=== PATIENT | male | born 1945 | race Caucasian/White ===

== ENCOUNTER → 2016-12-29 | Outpatient (CLI) | payer MEDICARE, OTHER | END | disposition home or self-care (01) | LOC: GMAB 11:32 | PROVIDERS: ATTEND Family Medicine | DX: Z12.5 Encounter for screening for malignant neoplasm of prostate (principal); I10 Essential (primary) hypertension; R53.82 Chronic fatigue, unspecified | CPT/HCPCS: 84403; 84443; G0103 ==

== ENCOUNTER 2017-04-06 11:12 | Observation (INO) | payer MEDICARE, OTHER ==
[2017-04-06] MEDS ORDERED: ASPIRIN TABLET 325 MG TAB PO ONE (11:49)
[2017-04-06] MEDS ORDERED: SODIUM CHLORIDE 0.9% 100ML 100 ML IVPB ONE (11:59)
[2017-04-06] MEDS ORDERED: diltiaZEM DRIP 125 MG/25 ML VIAL IVPB ONE (11:59)
[2017-04-06] MEDS ORDERED: diltiaZEM DRIP 125 MG in SODIUM CHLORIDE 0.9% 100ML 100 ML IVPB SCH (12:00)
--- NOTE | 2017-04-06 12:20 | RAD ---
Study: Single Frontal View of the Chest. Indication:palpitations Comparison: None IMPRESSION: Cardiomegaly without failure. Lungs hyperexpanded. Left basilar atelectasis, otherwise lungs clear. No acute osseous abnormality. Electronically signed by: Doc Monzon MD 04/06/2017 12:19 PM CDT
--- NOTE | 2017-04-06 14:12 | ED.PDOC ---
History of Present Illness - General Chief Complaint: Cardiovascular Problem Stated Complaint: Irregular heart beat, dizziness Time Seen by Provider: 04/06/17 11:14 Source: patient Exam Limitations: no limitations - History of Present Illness Initial Comments: the patient is a 71-year-old male presenting to the emergency room secondary primarily to a feeling of dyspnea on exertion. No orthopnea or paroxysmal nocturnal dyspnea. No swelling. No cough. No shortness of breath at rest. He does have periodic symptoms of palpitations. No syncope. No definite near syncope. No chest pain. He does have intermittent left-sided back pain as well as intermittent left hand discomfort that has been ongoing for the last 6 months to a year. It does not appear to be related to exertion. He does see cardiology and has had a history of primarily a bradycardia. He sees Dr. Finney normally. He only takes aspirin and lisinopril. No history of atrial fibrillation. Again he has had no chest pain. No diaphoresis. He noted some irregularities in his blood pressure todayso he showed up here. Again he is in no acute distress. He does get mildly winded with exertion. He is alert and oriented and cooperative. Timing/Duration: unsure Severity: mild Improving Factors: rest Worsening Factors: movement Associated Symptoms: malaise, shortness of breath Allergies/Adverse Reactions: Allergies Ofloxacin [From Floxin] Allergy (Verified 04/06/17 12:34) Anaphylaxis Home Medications: Ambulatory Orders Aspirin [Baby Aspirin] 162 mg PO DAILY 04/06/17 Lisinopril 5 mg PO DAILY 04/06/17 Review of Systems - Review of Systems Constitutional: States: malaise EENTM: States: no symptoms reported Respiratory: States: short of breath Cardiology: States: palpitations Gastrointestinal/Abdominal: States: no symptoms reported Genitourinary: States: no symptoms reported Musculoskeletal: States: no symptoms reported Skin: States: no symptoms reported Neurological: States: no symptoms reported All other Systems: No Change from Baseline Past Medical History (General) - Patient Medical History Hx Stroke: No Hx Asthma: Yes Hx Congestive Heart Failure: No Hx Hypertension: Yes Hx Diabetes: No Hx MRSA: No Surgical History: other - Vaccination History Hx Influenza Vaccination: No Hx Pneumococcal Vaccination: Yes - 2014 - Social History Hx Tobacco Use: No Hx Alcohol Use: No Family Medical History - Family History Father Hx Cardiac Disease: - "Irregular heart rhythm" Physical Exam - Physical Exam General Appearance: Alert, Anxious, No apparent distress Eye Exam: bilateral normal Ears, Nose, Throat: hearing grossly normal, normal ENT inspection, normal pharynx Neck: non-tender, full range of motion, supple Respiratory: chest non-tender, lungs clear, normal breath sounds, no respiratory distress, no accessory muscle use Cardiovascular/Chest: normal peripheral pulses, no edema, tachycardia Peripheral Pulses: radial,right: 2+, radial,left: 2+, dorsalis pedis,right: 2+, dorsalis pedis,left: 2+ Gastrointestinal/Abdominal: non tender, soft Rectal Exam: deferred Back Exam: normal inspection, no CVA tenderness, no vertebral tenderness Extremity: normal range of motion, non-tender, normal inspection, no pedal edema , normal capillary refill Neurologic: elastic attacher zigzag II-XII nml as tested, no motor/sensory deficits, alert, normal mood/affect, oriented x 3 Skin Exam: normal color Comments: Vital Signs - 24 hr 04/06/17 04/06/17 11:15 12:10 Temperature 97.9 F Pulse Rate [ 133 H 152 H Apical] Pulse Rate [ 110 H Left Radial] Respiratory 22 22 Rate Blood Pressure 145/99 106/59 [Right Arm] O2 Sat by Pulse 98 98 Oximetry Progress - Progress Progress: 04/06/17 14:14 the patient is a 71-year-old male presenting to the emergency room secondary to palpitations and mild dyspnea on exertion. The patient is found to have atrial fibrillation with a borderline rapid ventricular response. Without medications his pulse rate ranges [id number]. The rate on telemetry however ranges from 120s to 150s. After a small dose of Cardizemhis pulse rate has dropped down into the 70s but his telemetry rate is still in the 1 teens. Systolic blood pressures have also dropped from the 130s down to the 90s. I have discussed the patient with the adjuster on-call for the [facility]. As he is not exhibiting any evidence of failure and his ventricular rate control does not appear to be significantly compromised at this point, monitoring off of rate control medications as recommended initially. If pulse rates go too high with activityor if he is showing evidence of compromise from tachycardia and then the addition of rate control would be warranted. For now the patient will be started on anticoagulation with Danyel was 5 mg twice a day. They will plan on following up the patient is an outpatient next week as long as he is doing well. It is not known at this time definitively when the atrial fibrillation started. Electrocardioversion is not recommended as he is not showing significant evidence of decompensation. - Results/Orders Results/Orders: Laboratory Tests 04/06/17 04/06/17 04/06/17 11:55 11:55 11:55 WBC 5.9 RBC 5.15 Hgb 15.3 Hct 46.0 MCV 89.2 MCH 29.7 MCHC 33.3 RDW 14.5 Plt Count 245 MPV 8.4 Absolute Neuts (auto) 3.10 Absolute Lymphs (auto) 2.00 Absolute Monos (auto) 0.70 Absolute Eos (auto) 0.20 Absolute Basos (auto) 0.00 Neutrophils % 51.6 Lymphocytes % 33.4 Monocytes % 11.5 H Eosinophils % 3.0 Basophils % 0.5 PT 11.2 INR 0.990 PTT (SP) 37.3 H Sodium 139 Potassium 4.0 Chloride 106 Carbon Dioxide 26 Anion Gap 11.0 L BUN 26 H Creatinine 1.27 BUN/Creatinine Ratio 20.5 H Random Glucose 107 H Serum Osmolality 282.8 Calcium 8.6 Magnesium 2.3 Total Bilirubin 0.5 AST 17 ALT 19 Alkaline Phosphatase 79 Creatine Kinase 96 CK-MB (CK-2) 1.8 CK-MB (CK-2) % Not Reportable Troponin I 0.02 B-Natriuretic Peptide 14.0 Serum Total Protein 7.3 Albumin 4.1 Globulin 3.2 Albumin/Globulin Ratio 1.3 TSH 1.88 chest x-ray shows some very mild cardiomegaly but no evidence of overt fluid overload. EKG shows atrial fibrillation with a rate of 148 bpm. Please note that the pulse rate during this was only around 100 bpm. There is some left axis deviation. There is poor R-wave progression. Probable left bundle branch. I do not have previous EKG to compare to. Departure - Departure Clinical Impression: Atrial fibrillation with RVR Disposition: Admit Patient Referrals: Gaston Schultz MD [Primary Care Provider] - 1-2 Weeks Home Medications: Ambulatory Orders Aspirin [Baby Aspirin] 162 mg PO DAILY 04/06/17 Lisinopril 5 mg PO DAILY 04/06/17 Decision To Admit - Decistion To Admit Decision to Admit Reason: Medical Nature Decision to Admit Date: 04/06/17 Decision to Admit Time: 14:18
[2017-04-06] MEDS ORDERED: APIXABAN 2.5 MG TAB PO ONE (14:18)
--- NOTE | 2017-04-06 14:35 | HP ---
SUPERVISING PHYSICIAN: Clark Chacon M.D. CHIEF COMPLAINT: Shortness of breath and dizziness. HISTORY OF PRESENT ILLNESS: This is a 71 year-old male patient who had a gradual onset of shortness of breath yesterday evening. He had gone out to get his dumpster and brought it in and noticed that he was having difficulty getting his breath. He thinks it may have started several days prior to that but he really noticed it last night. After going in and relaxing, he said he felt some better and went to bed, but then he woke up in the middle of the night and couldn't sleep. He also had some dizziness, plus shortness of breath. There was no diaphoresis or chest pain, but he did feel a fluttering in his chest off and on during this time. He also said his left arm tingled, especially on the ring and little finger, but he has had that in the past. This morning, he came to the Emergency Room because the shortness of breath worsened as well as the dizziness and palpitations. In the Emergency Room, his EKG showed atrial fibrillation with rapid ventricular response with a heart rate that went up to 152. Blood pressure was 145/99. CBC and chemistries were basically within normal limits except his BUN was 26 and glucose was 107. He was given 5 mg of Cardizem and his systolic blood pressure dropped to the 80s. His heart rate did come down to the 110s to 120s. He has a history of bradycardia in the past and he sees Dr. Wesley at [facility]. The Emergency Room physician, Dr. Jake Grande, called Dr. Wesley's office and it was recommended that he be placed on Eliquis as well as a beta chrystal. The Cardizem was stopped. [facility] also has a followup appointment for him with Dr. Wesley next week. I was called for admission. PAST MEDICAL HISTORY: 1. Bradycardia. 2. Benign prostatic hypertrophy. 3. Tinnitus. PAST SURGICAL HISTORY: 1. Hernia surgery. 2. Abdominal surgery. 3. Tonsillectomy. HOME MEDICATIONS: Per the EMR and awaiting verification. ALLERGIES: FLOXIN. SOCIAL HISTORY: He denies any tobacco or illicit drug use. He drinks an alcoholic beverage once or twice per year. REVIEW OF SYSTEMS: GENERAL: Negative for fever, fatigue or weight changes. HEENT: Negative for sinus symptoms, ear pain, vision changes or sore throat. RESPIRATORY: Positive for shortness of breath, although he is not having any shortness of breath symptoms at this time. Negative for wheezing or coughing. CARDIAC: As per the History of Present Illness. GASTROINTESTINAL: Negative for abdominal pain, nausea, vomiting, diarrhea or constipation. SKIN: Negative for lesions or rashes. GENITOURINARY: Negative for hematuria, dysuria or polyuria. NEUROLOGIC: Positive for dizziness. Negative for weakness or seizures. PHYSICAL EXAMINATION: VITAL SIGNS: He is afebrile, heart rate ranges from 106 to 137, blood pressure 106/69, respiratory rate 18, O2 sat is 98% on room air. GENERAL: This is a 71 year-old male patient who looks younger than his stated age. He is in no acute distress. HEENT: Normocephalic and atraumatic. Pupils are equal and reactive. NECK: Supple without mass. CHEST: Clear to auscultation bilaterally. CARDIOVASCULAR: Irregular rhythm, tachycardic rate. ABDOMEN: Soft, nondistended, non-tender. Bowel sounds are positive. EXTREMITIES: No cyanosis, clubbing or edema. NEUROLOGIC: He is awake, alert and oriented times three. LABORATORY: As per the history of present illness, plus his TSH is 1.88. BNP 14, initial cardiac enzymes are negative. RADIOLOGY: Chest x-ray per radiology interpretation shows cardiomegaly without failure. Lungs are hyperexpanded with left basilar atelectasis, otherwise lungs are clear. No acute osseous abnormalities. All other labs and films have been reviewed via the EMR. ASSESSMENT: 1. New onset of atrial fibrillation with rapid ventricular response. 2. History of bradycardia. 3. Benign prostatic hypertrophy. PLAN: We will place the patient in Observation. Monitor his heart rate and EKGs overnight as well as his serial cardiac enzymes. I will followup with Dr. Wesley in the morning to make sure he does have an appointment next week. He has been started on Eliquis as well as Lopressor. I will check a hemoglobin A1c in the morning. I will repeat his blood work in the morning. Hopefully his heart rate can be controlled and he can followup with Dr. Wesley next week. Otherwise we will continue to monitor the patient closely and followup as needed. Dr. Chacon is the collaborating physician available for consultation. #[id number] [facility]
[2017-04-06] MEDS ORDERED: SODIUM CHLORIDE 0.9% (FLUSH) 10 ML SYG IV PRN (15:50)
[2017-04-06] MEDS ORDERED: ACETAMINOPHEN 325 MG TAB PO PRN (15:51)
[2017-04-06] MEDS ORDERED: IV SET AND CAP CHANGE INJ INJ SCH (16:00)
[2017-04-06] MEDS: METOPROLOL TARTRATE 25 MG TAB PO SCH (16:37)
[2017-04-06] MEDS ORDERED: SODIUM CHLORIDE 0.45% 1000ML 1,000 ML IVS ONE (17:00)
[2017-04-06] MEDS ORDERED: NON-FORMULARY MEDICATION 1 EA MIS (Diphenhydramine-Acetaminophen [Tylenol Pm Extra Strengt PO SCH (21:00)
[2017-04-06] MEDS: APIXABAN 2.5 MG TAB PO SCH (21:10)
[2017-04-06] MEDS: SODIUM CHLORIDE 0.9% (FLUSH) 10 ML SYG IV SCH (21:11)
[2017-04-07] MEDS ORDERED: OMEPRAZOLE CAP 20 MG CAP ONE (02:09)
[2017-04-07] MEDS ORDERED: BENEFIBER PO PRN (05:37)
[2017-04-07] MEDS ORDERED: OMEPRAZOLE CAP 20 MG CAP PO SCH (06:30)
[2017-04-07] MEDS ORDERED: ASPIRIN (CHEWABLE) 81 MG TAB ONE (07:23)
[2017-04-07] MEDS ORDERED: LISINOPRIL 5 MG TAB ONE (07:24)
[2017-04-07] MEDS: METOPROLOL TARTRATE 25 MG TAB PO SCH ×2 (08:33→09:59)
[2017-04-07] MEDS: APIXABAN 2.5 MG TAB PO SCH (08:34)
[2017-04-07] MEDS: SODIUM CHLORIDE 0.9% (FLUSH) 10 ML SYG IV SCH (08:35)
[2017-04-07 09:00] VITALS: O2SAT 95
[2017-04-07] MEDS ORDERED: ASPIRIN (CHEWABLE) 81 MG TAB PO SCH (09:00)
[2017-04-07] MEDS ORDERED: WHEAT DEXTRIN PO SCH (09:00)
[2017-04-07] MEDS ORDERED: TAMSULOSIN 0.4 MG CAP PO SCH (09:00)
[2017-04-07] MEDS ORDERED: LISINOPRIL 5 MG TAB PO SCH (09:00)
[2017-04-07 09:01] VITALS: BP 117/74; TEMP 98.2
--- NOTE | 2017-04-07 11:42 | DS ---
SUPERVISING PHYSICIAN: Clark Chacon MD DISCHARGE DIAGNOSIS: 1. New onset of atrial fibrillation with rapid ventricular response, now converted to sinus bradycardia. 2. History of bradycardia. 3. Benign prostatic hypertrophy. HISTORY OF PRESENT ILLNESS: This is a 71-year-old male patient who presented to the Emergency Room on the date of admission with onset of shortness of breath with palpitations. The symptoms actually started the day before his admission but was questioning that they may have started a week or so before. The day prior to admission, symptoms seemed worse and he felt weak with the palpitations. He had gone out to get his dumpster in front of his house and he noticed that he was extremely short of breath with any kind of exertion. He felt some better later that evening, but woke up about 4 o'clock in the morning and continued to have shortness of breath with palpitations as well as weakness and dizziness. The morning of admission, he came to the Emergency Room and was found to be in atrial fibrillation with rapid ventricular response. His blood pressure was 145/99. CBC and CMP were basically within normal limits. He was placed on a Cardizem drip at 5 mg an hour and it dropped his systolic blood pressure to the 80s. The Emergency Room physician, Dr. Jake Grande, called Dr. Wesley's office and it was recommended that he be placed on Eliquis as well as a beta chrystal. The Cardizem was stopped and he was placed in observation in the hospital. HOSPITAL COURSE: The patient was given metoprolol tartrate 12.5 mg and several hours after he was given the metoprolol, he converted to sinus bradycardia. His vital signs were stable. His cardiac enzymes were negative. He had no further complaints of weakness or shortness of breath and, in fact, he could tell when he converted in that he said he felt much better yesterday evening. I spoke with Dr. Bhat in Dr. Wesley's office at [facility]. He recommended that his lisinopril be discontinued and that he continue on the metoprolol tartrate 12.5 mg twice a day as well as Eliquis 5 mg twice a day. Today, he does not have any complaints of shortness of breath, chest pain, weakness, or dizziness and he will be discharged home. DISCHARGE PLAN: The patient will be discharged home in stable condition. He will be discharged on Eliquis 5 mg b.i.d. as well as metoprolol tartrate 12.5 mg b.i.d. He is to hold his metoprolol dosing for heart rate less than 50. He has a followup appointment with Dr. Schultz on 04/14/17 at 9:15. He has an appointment with Dr. Wesley on 04/18/17 at 2 PM. He is to return to the hospital or call Dr. Schultz's office if there are any further problems or symptoms recur. DISCHARGE MEDICATIONS.: 1 Baby aspirin. 2. Flomax. 3. Benefiber. 4. Tylenol PM. 5. Eliquis. 6. Metoprolol tartrate. Dr. Chacon is the collaborating physician and available for consultation. #[id number] [facility]
== END 2017-04-07 11:00 | disposition home or self-care (01) ==
LOC: ER 11:12 → MS 14:33
PROVIDERS: ADMIT Nurse Practitioner Acute Care; ATTEND Nurse Practitioner Acute Care
DX: I48.91 Unspecified atrial fibrillation (principal); R00.1 Bradycardia, unspecified; N40.0 Benign prostatic hyperplasia without lower urinary tract symptoms; R06.02 Shortness of breath; H93.19 Tinnitus, unspecified ear; I51.7 Cardiomegaly; Z79.82 Long term (current) use of aspirin; Z79.899 Other long term (current) drug therapy; Z88.1 Allergy status to other antibiotic agents
CPT/HCPCS: 36415 ×5; 71010; 80053 ×2; 82550 ×2; 82553 ×2; 83036; 83735; 83880; 84443; 84484 ×2; 85025 ×2; 85610; 85730; 93005 ×7; 94760 ×3; 96374; 99284; G0378; J7050; J7799

== ENCOUNTER 2017-05-27 11:30 | Emergency (ER) | payer MEDICARE, OTHER ==
[2017-05-27] MEDS ORDERED: SODIUM CHLORIDE 0.9% (FLUSH) 10 ML SYG IV PRN (11:42)
[2017-05-27] MEDS ORDERED: ASPIRIN TABLET 325 MG TAB PO ONE (11:42)
[2017-05-27] MEDS ORDERED: NITROGLYCERIN 0.4 MG 25 EA TAB SL ONE (11:42)
--- NOTE | 2017-05-27 12:11 | RAD ---
EXAM DESCRIPTION: Chest,1 View CLINICAL HISTORY: 71 years,Male,pain COMPARISON: May 27, 2017 FINDINGS: Lung tubbs are clear, no consolidation, effusions, or nodules. Heart size and pulmonary vascularity are normal. Bony elements are unremarkable for age. IMPRESSION: Unremarkable chest. Stable Electronically signed by: Austin Mosher MD 05/27/2017 12:09 PM CDT
[2017-05-27 12:39] VITALS: O2SAT 98
--- NOTE | 2017-05-27 13:12 | ED.PDOC ---
History of Present Illness - General Chief Complaint: Chest Pain/CT Stated Complaint: Chest tightness, L arm tingling/numbness Time Seen by Provider: 05/27/17 11:41 Source: patient Exam Limitations: no limitations - History of Present Illness Initial Comments: Boo Perdomo 71 y/o male stated that while sitting on his recliner this morning he had chest tightness and numbness to his arm and hand and got worse with sob,denies diaphoresis,nausea,vomting.Had this symptoms on and off since last month and had abnormal stress test and nuclear cardiac scan he is scheduled to have cardiac cath 05/30/2017 in [facility].He was given 324mg ASA and NTG 0.[address] here.Has A.fibrillation 6 mos. ago hospitalized and started on eliquis and b-chrystal. Timing/Duration: 7-24 hours Severity: moderate Location: central Activities at Onset: rest Prior Chest Pain/Cardiac Workup: cardiac cath - nine years ago with LBBB-20-30 % lesion according to patient, echocardiography, stress test, thallium scan Improving Factors: nothing Worsening Factors: nothing Nitro Today/Relief: 0.4 mg x 1, provided by EMS Aspirin Treatment Today: 325 mg x 1, provided by EMS Associated Symptoms: shortness of breath Allergies/Adverse Reactions: Allergies Ofloxacin [From Floxin] Allergy (Verified 05/27/17 11:45) Anaphylaxis Home Medications: Ambulatory Orders Diphenhydramine-Acetaminophen [Tylenol Pm Extra Strength 500-25 mg] 1 - 2 tab PO BEDTIME 04/06/17 Tamsulosin HCl [Flomax] 0.4 mg PO DAILY 04/06/17 Wheat Dextrin [Benefiber] 2 tsp PO QAM 04/06/17 Apixaban [Eliquis] 5 mg PO BID #60 tab 04/07/17 Metoprolol Tartrate [Lopressor] 12.5 mg PO BIDFD #60 tablet 04/07/17 Nitroglycerin 0.4 mg Tab [Nitrostat] 0.4 mg SL .Q5M PRN #1 bttl 05/27/17 Review of Systems - Review of Systems Constitutional: States: no symptoms reported EENTM: States: no symptoms reported Respiratory: States: no symptoms reported Cardiology: States: see HPI Genitourinary: States: no symptoms reported Musculoskeletal: States: no symptoms reported Skin: States: no symptoms reported Neurological: States: no symptoms reported Past Medical History (General) - Patient Medical History Hx Seizures: No Hx Stroke: No Hx Asthma: Yes Hx of COPD: No Hx Cardiac Disorders: Yes - A fib Hx Congestive Heart Failure: No Hx Pacemaker: No Hx Hypertension: Yes Hx Diabetes: No Hx MRSA: No Surgical History: other - hernia repair - Vaccination History Hx Influenza Vaccination: No Hx Pneumococcal Vaccination: Yes - 2014 - Social History Hx Tobacco Use: No Hx Alcohol Use: No Hx Substance Use: No Hx Physical Abuse: No Hx Emotional Abuse: No - Activities of Daily Living Grooming Ability: Independent Eating (Feeding) Ability: Independent Toileting Ability: Independent Family Medical History - Family History Father Living Status: Age at (years of age): 89 Cause of : COPD Hx Family Asthma: Yes Hx Family Congestive Heart Failure: Yes Hx Family Hypertension: No Hx Family Stroke: Yes Hx Cardiac Disease: Yes - "Irregular heart rhythm" Hx Family Diabetes: No Hx Family Cancer: Yes - dad-prostate Mother Family History: No Known Living Status: Age at (years of age): 77 Cause of : Bleeding Ulcer Hx Family Asthma: No Hx Family Congestive Heart Failure: No Hx Family Hypertension: No Hx Family Stroke: No Hx Cardiac Disease: No Hx Family Diabetes: No Hx Family Cancer: No Physical Exam - Physical Exam General Appearance: Alert, Comfortable, No apparent distress Eyes, Ears, Nose, Throat Exam: PERRL/EOMI, normal ENT inspection, pharynx normal Neck: non-tender, supple, normal inspection Respiratory: lungs clear, normal breath sounds Cardiovascular/Chest: normal peripheral pulses, regular rate, rhythm, no murmur , bradycardia - heart rate 53 Peripheral Pulses: radial,right: 2+, radial,left: 2+ Gastrointestinal/Abdominal: normal bowel sounds, non tender, soft, no organomegaly Extremity: no pedal edema, no calf tenderness Neurologic: alert, normal mood/affect, oriented x 3 Progress - Progress Progress: 05/27/17 13:18 Vital Signs 05/27/17 05/27/17 05/27/17 11:40 11:45 12:11 Pulse Rate [ 58 L 58 L 58 L Left Radial] Respiratory 20 20 20 Rate Blood Pressure 140/73 121/71 [Left Arm] O2 Sat by Pulse 98 96 Oximetry 05/27/17 12:30 Pulse Rate [ 55 L Left Radial] Respiratory 16 Rate Blood Pressure 116/65 [Left Arm] O2 Sat by Pulse 98 Oximetry - Results/Orders Results/Orders: Laboratory Tests 05/27/17 05/27/17 05/27/17 11:57 11:57 14:21 WBC 4.8 RBC 4.85 Hgb 14.5 Hct 43.2 MCV 89.1 MCH 29.8 MCHC 33.5 RDW 13.8 Plt Count 232 MPV 8.2 Absolute Neuts (auto) 2.70 Absolute Lymphs (auto) 1.40 Absolute Monos (auto) 0.50 Absolute Eos (auto) 0.20 Absolute Basos (auto) 0.00 Neutrophils % 56.5 Lymphocytes % 29.4 Monocytes % 10.2 H Eosinophils % 3.3 Basophils % 0.6 PT 13.7 H INR 1.210 PTT (SP) 41.2 H D-Dimer, Quantitative < 230 Sodium 139 Potassium 4.1 Chloride 106 Carbon Dioxide 27 Anion Gap 10.1 L BUN 23 H Creatinine 1.26 BUN/Creatinine Ratio 18.3 Random Glucose 111 H Serum Osmolality 281.9 Calcium 9.0 Magnesium 2.2 Total Bilirubin 0.5 Direct Bilirubin 0.1 Indirect Bilirubin 0.4 AST 14 ALT 18 Alkaline Phosphatase 75 Creatine Kinase 54 CK-MB (CK-2) 0.9 CK-MB (CK-2) % Not Reportable Troponin I < 0.02 Cancelled B-Natriuretic Peptide 13.5 Serum Total Protein 6.9 Albumin 4.1 05/27/17 14:35 WBC RBC Hgb Hct MCV MCH MCHC RDW Plt Count MPV Absolute Neuts (auto) Absolute Lymphs (auto) Absolute Monos (auto) Absolute Eos (auto) Absolute Basos (auto) Neutrophils % Lymphocytes % Monocytes % Eosinophils % Basophils % PT INR PTT (SP) D-Dimer, Quantitative Sodium Potassium Chloride Carbon Dioxide Anion Gap BUN Creatinine BUN/Creatinine Ratio Random Glucose Serum Osmolality Calcium Magnesium Total Bilirubin Direct Bilirubin Indirect Bilirubin AST ALT Alkaline Phosphatase Creatine Kinase 48 CK-MB (CK-2) 0.9 CK-MB (CK-2) % Not Reportable Troponin I < 0.02 B-Natriuretic Peptide Serum Total Protein Albumin - EKG/XRAY/CT EKG: LBBB Comments: heart rate-70 LAD XRAY: chest - no acute findings - Additional EKG/XRAY/Consults EKG #2: Sigifredo, Sinus, LBBB Comments: Heart rate-53 Departure - Departure Clinical Impression: Chest tightness or pressure Time of Disposition: 15:24 Disposition: Discharge to Home or Self Care Condition: Fair Departure Forms: ED Discharge - Pt. Copy, Patient Portal Self Enrollment Instructions: DI for Chest Pain Referrals: Gaston Schultz MD [Primary Care Provider] - 1-2 Weeks Prescriptions: Nitroglycerin 0.4 mg Tab [Nitrostat] 0.4 mg SL .Q5M PRN #1 bttl PRN Reason: Chest Pain Home Medications: Ambulatory Orders Diphenhydramine-Acetaminophen [Tylenol Pm Extra Strength 500-25 mg] 1 - 2 tab PO BEDTIME 04/06/17 Tamsulosin HCl [Flomax] 0.4 mg PO DAILY 04/06/17 Wheat Dextrin [Benefiber] 2 tsp PO QAM 04/06/17 Apixaban [Eliquis] 5 mg PO BID #60 tab 04/07/17 Metoprolol Tartrate [Lopressor] 12.5 mg PO BIDFD #60 tablet 04/07/17 Nitroglycerin 0.4 mg Tab [Nitrostat] 0.4 mg SL .Q5M PRN #1 bttl 05/27/17 Additional Instructions: RETURN TO EMERGENCY ROOM NEEDED;KEEP APPOINTMENT WITH [facility] SUPERVISOR FOR CARDIAC CATH 05/30/2017
[2017-05-27 15:37] VITALS: BP 109/61; TEMP 98.2
== END 2017-05-27 15:40 | disposition home or self-care (01) ==
LOC: ER 11:30
DX: R07.89 Other chest pain (principal); I44.7 Left bundle-branch block, unspecified; I48.91 Unspecified atrial fibrillation; J45.909 Unspecified asthma, uncomplicated; Z79.899 Other long term (current) drug therapy; Z79.01 Long term (current) use of anticoagulants

== ENCOUNTER → 2018-02-21 | Outpatient (CLI) | payer MEDICARE, OTHER | LOC: GMAE 10:52 | PROVIDERS: ATTEND Family Medicine | DX: I10 Essential (primary) hypertension (principal); Z12.5 Encounter for screening for malignant neoplasm of prostate | CPT/HCPCS: 84443; G0103 ==

== ENCOUNTER → 2019-02-20 | Outpatient (CLI) | payer MEDICARE, OTHER | LOC: YCFC.O 07:03 | PROVIDERS: ATTEND Family Medicine | DX: Z00.00 Encounter for general adult medical examination without abnormal findings (principal); Z13.220 Encounter for screening for lipoid disorders; R53.83 Other fatigue; E78.5 Hyperlipidemia, unspecified; R97.20 Elevated prostate specific antigen [PSA] ==

== ENCOUNTER → 2019-03-05 | Outpatient (CLI) | payer MEDICARE, OTHER ==
--- NOTE | 2019-03-05 10:18 | CT ---
EXAM DESCRIPTION: Abdomen/Pelvis w/wo Contrast CLINICAL HISTORY: 73 years Male, HEMATURIA COMPARISON: None available. TECHNIQUE: Contiguous 3 mm axial images were obtained from the lung bases to the level of the proximal femora before and after the administration of intravenous and oral contrast. Sagittal and coronal reconstructions were reviewed. FINDINGS: THORAX: Minimal subsegmental atelectasis is noted in the visualized lower thorax. LIVER: The liver demonstrates normal size and density with no intrahepatic biliary ductal dilatation or focal masses. GALLBLADDER: Multiple gallstones are identified. PANCREAS: Appears normal with no cystic or solid lesions. SPLEEN: Normal ADRENAL GLANDS: Normal with no nodules or masses. KIDNEYS: Multiple bilateral simple renal cysts are identified. Few nonobstructive calculi measuring up to 4 mm are noted in the left kidney. No hydronephrosis or perinephric fluid collections bilaterally. 5 mm calculus is noted at the junction of the middle and distal one thirds of the right ureter with no obstructive dilatation. The visualized left ureter appears normal. STOMACH: Not well distended limiting detailed evaluation. SMALL BOWEL: The small bowel loops demonstrate variable degrees of distention with no abnormal dilatation or other signs to suggest bowel obstruction. LARGE BOWEL: Multiple diverticuli are identified throughout the colon, with no acute inflammation. Mild constipation is also present. The appendix is well-visualized and appears normal No evidence of free intraperitoneal air or fluid. RETROPERITONEUM: The abdominal aorta is nonaneurysmal with mild atherosclerosis. The inferior vena cava is normal in size and caliber. No abnormally enlarged retroperitoneal lymph nodes are identified. URINARY BLADDER: The urinary bladder is mildly distended with no gross abnormality. The prostate gland is enlarged in size measuring 6.3 x 4.7 x 5.9 cm. The seminal vesicles appear normal. ADDITIONAL FINDINGS: Fat-containing left inguinal hernia is identified. BONES: Mild degenerative changes are identified in the visualized bones.No evidence of osteophytic or osteoblastic lesions. IMPRESSION: 1. 5 mm calculus is noted at the junction of the middle and distal one thirds of the right ureter with no upstream dilatation. 2. Nonobstructive nephrolithiasis of the left kidney. 3. Enlarged prostate gland. This exam was performed according to our departmental dose-optimization program, which includes automated exposure control, adjustment of the mA and/or kV according to patient size and/or use of iterative reconstruction technique. Electronically signed by: Hien Jennings MD 03/05/2019 10:17 AM CDT
== END ==
LOC: CT 08:00
PROVIDERS: ATTEND Family Medicine
DX: N20.2 Calculus of kidney with calculus of ureter (principal); N40.0 Benign prostatic hyperplasia without lower urinary tract symptoms

== ENCOUNTER → 2020-02-04 | Outpatient (CLI) | payer MEDICARE, OTHER | LOC: YCFC.O 07:54 | PROVIDERS: ATTEND Family Medicine | DX: N40.0 Benign prostatic hyperplasia without lower urinary tract symptoms (principal); R97.20 Elevated prostate specific antigen [PSA]; I25.10 Atherosclerotic heart disease of native coronary artery without angina pectoris; E78.5 Hyperlipidemia, unspecified; R53.83 Other fatigue; Z79.899 Other long term (current) drug therapy; Z87.442 Personal history of urinary calculi ==

== ENCOUNTER → 2020-03-11 | Outpatient (CLI) | payer MEDICARE, OTHER | LOC: YCFC.O 09:10 | PROVIDERS: ATTEND Family Medicine | DX: R94.4 Abnormal results of kidney function studies (principal) ==